=== PATIENT | male | born 1980 | race Hispanic/Latino ===

== ENCOUNTER 2017-09-03 06:09 | Day surgery (SDC) | payer OTHER ==
--- NOTE | 2017-09-03 06:20 | ED PDOC ---
Upper Extremity Pain/Injury Time Seen by Provider: 09/03/17 06:18 Chief Complaint (Provider): Right hand pain History Per: Patient History/Exam Limitations: no limitations Onset/Duration Of Symptoms: Days (4) Current Symptoms Are (Timing): Still Present Additional History Per: Patient Additional Complaint(s): 37yo male, presents to ED with complaints of pain to right hand s/p fracture 4 days ago. Patient states he was evaluated by his orthopedist originally and was placed in a splint; he presents to the ER due to continued worsening pain. He denies any new injuries, trauma, weakness, numbness or tingling. No other complaints. Past Medical History Reviewed: Historical Data, Nursing Documentation, Vital Signs - Medical History PMH: No Chronic Diseases - Surgical History Surgical History: No Surg Hx - Family History Family History: States: No Known Family Hx - Home Medications Home Medications: Ambulatory Orders Medication Instructions Recorded oxyCODONE/Acetaminophen [Percocet 1 tab PO Q6 PRN #20 tab 09/03/17 5/325 mg Tab] - Allergies Allergies/Adverse Reactions: Allergies Allergy/AdvReac Type Severity Reaction Status Date / Time No Known Allergies Allergy Verified 09/03/17 06:21 Review of Systems ROS Statement: Except As Marked, All Systems Reviewed And Found Negative Constitutional: Negative for: Chills Musculoskeletal: Positive for: Hand Pain (right) Neurological: Negative for: Numbness Physical Exam - Reviewed Nursing Documentation Reviewed: Yes Vital Signs Reviewed: Yes - Physical Exam Appears: Positive for: Non-toxic Head Exam: Positive for: ATRAUMATIC, NORMAL INSPECTION, NORMOCEPHALIC Skin: Positive for: Normal Color Eye Exam: Positive for: Normal appearance Neck: Positive for: Supple Cardiovascular/Chest: Positive for: Regular Rate, Rhythm Respiratory: Positive for: Normal Breath Sounds Extremity: Positive for: Normal ROM (FROM of all digits right hand), Capillary Refill (< 2 seconds), Other (right hand in splint) Neurologic/Psych: Positive for: Alert, Oriented. Negative for: Motor/Sensory Deficits - Laboratory Results Result Diagrams: 09/03/17 08:09 09/03/17 08:09 Medical Decision Making Medical Decision Making: Impression: Right hand pain s/p fracture Plan: -- Case discussed with Dr. Willett and patient to be admitted for OR repair. Labs, CXR and urinalysis ordered. [address] Martinez, who will be endorsing patient to Dr. Hilton, incoming hospitalist at 7AM. Scribe Attestation: Documented by Barb Rojas, acting as a scribe for Edgard Herbert MD Provider Attestation: All medical record entries made by the Scribe were at my direction and personally dictated by me. I have reviewed the chart and agree that the record accurately reflects my personal performance of the history, physical exam, medical decision making, and the department course for this patient. I have also personally directed, reviewed, and agree with the discharge instructions and disposition. Disposition - Clinical Impression Clinical Impression: Fracture of fifth metacarpal bone of right hand - Patient ED Disposition Is Patient to be Admitted: Yes - Disposition Disposition Time: 06:21 Condition: FAIR
[2017-09-03 06:21] VITALS: BMI 22.0
[2017-09-03] MEDS ORDERED: Dextrose 5%/0.45% NS 1,000 ML IV SCH (06:30)
[2017-09-03] MEDS ORDERED: Phenylephrine 10 mg/ml Inj ONE (07:17)
[2017-09-03] MEDS ORDERED: Succinylcholine 200 mg/10 ml Inj IV ONE (07:17)
[2017-09-03] MEDS ORDERED: Rocuronium 10 mg/ml (5 ml) ONE (07:17)
[2017-09-03] MEDS ORDERED: Lidocaine 4% (Laryng-O-Jet) Kit MM ONE (07:17)
[2017-09-03] MEDS ORDERED: Propofol 10 mg/ml Inj (20 ML) ONE (07:17)
--- NOTE | 2017-09-03 07:41 | CP.PCM.CON ---
History of Present Illness - History of Present Illness History of Present Illness: Orthopedic H&P Patient is a 37 y/o M with no PMH who presents with severe R hand pain. He states that he injured her hand 6 days ago after a mechanical fall onto his R hand and punching a wall with his R hand immediately following. He was diagnosed with a R hand 5th metacarpal fracture, treated with an unsuccessful reduction and short arm splint at [facility]. Over the last week, the pain had progressively worsened prompting his visit to the ER today. The pain is currently sharp and stabbing in quality and constant in frequency. The pain is worsened with movement and alleviated with rest. He denies radiation of pain, numbness or tingling. He also denies CP/SOB/N/V/D/fever/ dysuria/melena. Dr. Willett was consulted for orthopedic evaluation. Review of Systems - Review of Systems All systems: reviewed and no additional remarkable complaints except Review of Systems: as per HPI Past Patient History - Past Medical History & Family History Past Medical History?: No Past Family History: Reviewed and not pertinent - Past Social History Smoking Status: Former Smoker Alcohol: Occasional Drugs: Denies - CARDIAC Hx Cardiac Disorders: No - PULMONARY Hx Respiratory Disorders: No - NEUROLOGICAL Hx Neurological Disorder: No - HEENT Hx HEENT Problems: No - RENAL Hx Chronic Kidney Disease: No - ENDOCRINE/METABOLIC Hx Endocrine Disorders: No - HEMATOLOGICAL/ONCOLOGICAL Hx Blood Disorders: No - INTEGUMENTARY Hx Dermatological Problems: No - MUSCULOSKELETAL/RHEUMATOLOGICAL Hx Musculoskeletal Disorders: No - GASTROINTESTINAL Hx Gastrointestinal Disorders: No - GENITOURINARY/GYNECOLOGICAL Hx Genitourinary Disorders: No - PSYCHIATRIC Hx Psychophysiologic Disorder: No Hx Substance Use: No - SURGICAL HISTORY Hx Surgeries: No - ANESTHESIA Hx Anesthesia: No Hx Anesthesia Reactions: No Meds Home Medications: Home Medication List Medication Instructions Recorded Confirmed Type oxyCODONE/Acetaminophen [Percocet 1 tab PO Q6 PRN #20 tab 09/03/17 Rx 5/325 mg Tab] Allergies/Adverse Reactions: Allergies Allergy/AdvReac Type Severity Reaction Status Date / Time No Known Allergies Allergy Verified 09/03/17 06:21 - Medications Medications: Current Medications Dextrose/Sodium Chloride (Dextrose 5%/0.45% Ns 1000 Ml) 1,000 mls @ 125 mls/hr IV .Q8H ROSALVA Last Admin: 09/03/17 07:17 Dose: 125 mls/hr Physical Exam - Constitutional Appears: Well, No Acute Distress - Head Exam Head Exam: ATRAUMATIC, NORMOCEPHALIC - Eye Exam Eye Exam: EOMI, Normal appearance, PERRL - ENT Exam ENT Exam: Mucous Membranes Moist, Normal Exam - Respiratory Exam Respiratory Exam: Clear to Auscultation Bilateral, NORMAL BREATHING PATTERN - Cardiovascular Exam Cardiovascular Exam: REGULAR RHYTHM - GI/Abdominal Exam GI & Abdominal Exam: Normal Bowel Sounds, Soft - Extremities Exam Additional comments: R hand: splint CDI no lesions moving all fingers sensation intact MN/UN/RN 2 sec cap refill - Neurological Exam Neurological exam: Alert, Oriented x3 - Psychiatric Exam Psychiatric exam: Normal Affect, Normal Mood - Skin Skin Exam: Normal Color, Warm Results - Vital Signs Recent Vital Signs: Last Vital Signs Temp 98.3 F 09/03/17 07:32 Pulse 78 09/03/17 07:32 Resp 16 09/03/17 07:32 BP 157/91 H 09/03/17 07:32 Pulse Ox 99 09/03/17 07:32 - Labs Result Diagrams: 09/03/17 08:09 09/03/17 08:09 Assessment & Plan (1) Fracture of fifth metacarpal bone of right hand Assessment and Plan: -Dr. Willett proposes a R hand 5th metacarpal fx ORIF in OR today -Risks/benefits of procedures were explained the the patient in detail and she expresses understanding. He agrees to proceed with above procedure. -above d/w Dr. Willett in agreement. Status: Acute - Date & Time Date: 09/03/17 Time: 07:15
[2017-09-03 07:48] LABS: URINE BILIRUBIN NEGATIVE (NEGATIVE); URINE BLOOD NEGATIVE (NEGATIVE); URINE CLARITY CLEAR (Clear); URINE COLOR STRAW (YELLOW); URINE GLUCOSE (UA) NEG (Normal); URINE LEUKOCYTE ESTERASE NEG Leu/uL (Negative); URINE PROTEIN NEGATIVE (NEGATIVE); URINE UROBILINOGEN 0.2-1.0 mg/dL (0.2-1.0)
[2017-09-03] MEDS ORDERED: Lactated Ringer's 1,000 ML IV ONE ×2 (07:50→09:35)
[2017-09-03] MEDS ORDERED: Midazolam 2 MG/2 ML VIAL ONE (07:58)
[2017-09-03] MEDS ORDERED: ceFAZolin IV 2 gm in Dextrose 2 GM/50 ML BAG IVPB ONE (08:02)
[2017-09-03] MEDS ORDERED: Bacitracin Ointment 30 GM TUBE ONE (08:07)
[2017-09-03] MEDS ORDERED: Gentamicin 80 mg/2mL Inj. ONE (08:07)
[2017-09-03] MEDS ORDERED: Gentamicin 80 mg/2mL Inj. IVPB ONE (08:15)
[2017-09-03 08:19] LABS: BASO # 0.1 K/uL (0.0-0.2); BASO % 0.9 % (0.0-2.0); EOS # 0.1 K/uL (0.0-0.7); EOS % 1.4 % (0.0-4.0); LYMPH % 21.6 % (20.0-40.0); MEAN CELL VOLUME 88.3 fl (80.0-94.0); MEAN CORPUSCULAR HEMOGLOBIN 30.2 pg (27.0-31.0); MEAN CORPUSCULAR HGB CONC 34.2 g/dL (33.0-37.0); MEAN PLATELET VOLUME 8.5 fl (7.2-11.7); MONO # 0.5 K/uL (0.0-0.8); MONO % 5.6 % (0.0-10.0); NEUT # 6.4 K/uL (1.8-7.0); NEUT % 70.5 % (50.0-75.0); NRBC % 0.1 % (0.0-0.0); RBC 5.29 Mil/uL (4.40-5.90); RED CELL DISTRIBUTION WIDTH 12.6 % (11.5-14.5); WHITE BLOOD COUNT 9.1 K/uL (4.8-10.8)
[2017-09-03 08:20] LABS: PROTHROMBIN TIME 11.2 Seconds (9.8-13.1)
[2017-09-03 08:21] LABS: PARTIAL THROMBOPLASTIN TIME 30.8 Seconds (25.6-37.1)
[2017-09-03] MEDS ORDERED: Neostigmine 1:1000 (1 mg/ml) Inj ONE (08:21)
--- NOTE | 2017-09-03 08:22 | RAD ---
HISTORY: chest pain COMPARISON: No prior. FINDINGS: LUNGS: No active pulmonary disease. PLEURA: No significant pleural effusion identified, no pneumothorax apparent. CARDIOVASCULAR: Normal. OSSEOUS STRUCTURES: No significant abnormalities. VISUALIZED UPPER ABDOMEN: Normal. OTHER FINDINGS: None. IMPRESSION: No acute cardiopulmonary disease appreciated.
[2017-09-03 08:25] LABS: ALB/GLOB RATIO 1.4 (1.0-2.1); ALBUMIN 4.5 g/dL (3.5-5.0); ALT/SGPT 29 U/L (21-72); AST/SGOT 24 U/L (17-59); BLOOD UREA NITROGEN 14 mg/dl (9-20); CALCIUM 9.3 mg/dL (8.4-10.2); GFR AFRICAN-AMERICAN > 60; GFR NON-AFRICAN AMERICAN > 60
[2017-09-03] MEDS ORDERED: Bacitracin OINT 15GM TOP ONE (09:55)
[2017-09-03] MEDS ORDERED: HYDROmorphone 0.5 mg/0.5 ml ISec IVP PRN (10:11)
--- NOTE | 2017-09-03 10:13 | PCM.ANESB4 ---
Infraclavicular Block - Femoral Nerve Block Date of Procedure: 09/03/17 Anesthesiologist: Dalton Pre-Procedure Diagnosis: Right 5th metacarpal fracture Post-Procedure Diagnosis: Same Procedure Performed: Brachial Plexus at the Infraclavicular area Right - Procedure Infraclavicular Block: The procedure was explained to the patient that it is for the post-operative pain management. Consent was obtained after a thorough discussion with the patient regarding the benefits and possible complications of local anesthetic block of the brachial plexus at the infraclavicular area. The patient was brought to the operating room and standard monitors were applied. Time-out was held with the circulating nurse to confirm the correct surgery and the appropriate block. After applying oxygen by nasal cannula and administering IV Sedation, patient's head was gently rotated away from the operative ___right____ _ shoulder and the area medial to the coracoid process and inferior to the clavicle was carefully palpated. The ultrasound transducer was then applied to the skin in the transverse plane and the brachial plexus was visualized surrounding the axillary artery and deep to the pectoralis major and minor muscles. After thorough identification, this area was prepped withChloraprep times and 1 % Lidocaine was injected subcutaneously for topical anesthesia. At this point, a #21 gauge Stimuplex 4-inch needle was inserted cephalad to the ultrasound transducer and inferior to the clavicle in-plane towards the posterior aspect of the axillary artery. Needle advancement was performed carefully under ultrasound visualization. Nerve stimulator was used and twitch of the affected extremity including fingers, hand, wrist and elbow was obtained at current of __0.4___MA. After repeated negative aspiration, __2___cc of _0.5__ __% ___bupivicaine with 1:200,000 epinephrine was injected and this was followed with __23____ cc of __0.5 % __bupivicaine with 1:200,000 epinephrine . Under ultrasound guidance the local anesthetics were observed surrounding the cords of the brachial plexus. The needle was removed intact and sterile dressing was applied. The patient had stable vital signs, was conscious and in no apparent distress. The patient tolerated the infraclavicular block of the brachial plexus well with stable vital signs was prepared for subsequent surgery.
[2017-09-03] MEDS ORDERED: Lactated Ringer's 1,000 ML IV SCH ×2 (10:15→11:00)
[2017-09-03] MEDS ORDERED: Oxycodone/Acetaminophen 5/325 mg Tab PO PRN (10:57)
--- NOTE | 2017-09-03 11:09 | PCM.SURG1 ---
Surgeon's Initial Post Op Note - Surgeon's Notes Surgeon: Brennon Glove Operator: KENNETH Amezquita Type of Anesthesia: General Endo Anesthesia Administered By: DR Das Pre-Operative Diagnosis: Displaced/angulated distal 5th metacarpal neck fracture with significant comminution and angulation/displacement Operative Findings: as above Post-Operative Diagnosis: as above Operation Performed: ORIF displaced/angulated dfistal 5th Metacarpal fx. primary repair extensor tendon. primary repair capsule 5th MCP joint. applx short arm splint Specimen/Specimens Removed: fx callous Estimated Blood Loss: EBL {In ML}: 5 Blood Products Given: N/A Drains Used: No Drains Post-Op Condition: Good Date of Surgery/Procedure: 09/03/17 Time of Surgery/Procedure: 08:50 (time in room/anaesthesia indcution time 7:55)
[2017-09-03 12:25] VITALS: RESP 18
--- NOTE | 2017-09-03 14:37 | RAD ---
PROCEDURE: Right Hand Radiographs. HISTORY: s/p ORIF right 5th metacarpal COMPARISON: None. FINDINGS: BONES: Healing fracture distal aspect right 5th metacarpal. Major fracture fragments anatomically aligned. No evidence of orthopedic hardware failure. JOINTS: Normal. No osteoarthritic changes. SOFT TISSUES: Normal. OTHER FINDINGS: None. IMPRESSION: Satisfactory postoperative status.
[2017-09-03 14:42] VITALS: BP 132/76; PULSE 97; TEMP 97.6; O2SAT 98
--- NOTE | 2017-09-03 16:07 | RAD ---
PROCEDURE: Abort Fluoroscopy up to 1 hr. HISTORY: COMPARISON: None TECHNIQUE: Standard protocol for this study/examination. FINDINGS: Total fluoroscopic time (continuous mode) utilized during the procedure (seconds) 4.4. Total exam DLP: (mGy) 0.06.. IMPRESSION: Less than 1 hr fluoroscopic time utilized during performance of the procedure.
--- NOTE | 2017-09-03 17:12 | CARD ---
APPROVED REPORT EKG Measurement Heart [id number] <Conclusion> Normal sinus rhythm Normal ECG
--- NOTE | 2017-09-05 09:21 | OP ---
PROCEDURE DATE: 09/03/2017 PREOPERATIVE DIAGNOSES: Displaced angulated distal fifth metacarpal neck fracture with significant comminution, angulation and displacement. POSTOPERATIVE DIAGNOSES: Displaced angulated distal fifth metacarpal neck fracture with significant comminution, angulation and displacement. OPERATIVE FINDINGS: Displaced angulated distal fifth metacarpal neck fracture with significant comminution, angulation and displacement. SURGEON: Bronson Willett MD BORING MACHINE SET UP OPERATOR JIG: Yanely Toribio, certified registered nursing engineer first assistant. OPERATIVE PROCEDURE: 1. Open reduction internal fixation of displaced angulated distal fifth metacarpal fracture, right hand. 2. Primary repair of extensor tendon. 3. Primary repair of capsule of the fifth metacarpophalangeal joint, a capsulotomy. 4. Application of volar splint. 5. Positioning of fluoroscope interpretation of video images. SPECIMEN REMOVED: Fracture callus. BLOOD LOSS: 5 mL. BLOOD PRODUCTS GIVEN: None. DRAINS: No drains. POSTOPERATIVE CONDITION: Stable. TIME OF SURGERY: Time in the room 7:55, and incision time 8:50. After having obtained informed consent from the patient and his , Rachel, after thoroughly discussing the pros, cons, risks and benefits of the surgical approach, the possibility of stiffness, infection, mechanical failure, thromboembolic disease, secondary or tertiary surgery was discussed. The right fifth metacarpal is the correct metacarpal. OPERATIVE INDICATIONS: Kallie Moraes is a 37-year-old gentleman who had sustained a fall and then had punched some paper as a result of frustration at work. The patient presents to [facility] with severe pain, numbness, and tingling. The patient had been seen elsewhere and presents at this point in time with severe discomfort, pain, and restricted range of motion. Possibility again of mechanical failure, infection, thromboembolic disease, secondary or tertiary surgery was discussed. OPERATIVE PROCEDURE: The right hand is the correct hand. After having obtained informed consent in the above fashion, after the satisfactory induction of general and regional anesthesia by Dr. Juan David Hoffman, after having identified side, site, and procedure and critical pause/time-out, the patient identified as Kallie Moraes in the supine position with all bony prominences well padded, the right upper extremity was prepped and free draped in the usual fashion for upper extremity surgery. The tourniquet had been applied, but it was not yet inflated. The operation was performed under 2.0 eyeglass magnification. An incision was described dorsal ulnarly to the fifth metacarpal extending past the metacarpophalangeal joint. Great care was taken to avoid injury to the dorsal sensory branch of the ulnar nerve. The skin incision was carried down through the skin and subcutaneous tissue. Hemostasis was controlled with the electrocautery. At this point in time, the fracture site is noted. It is unfortunately at the intersection of the extensor tendons, the extensor digitorum communis, and the extensor fifth finger. This having been accomplished, a portion of chiasm was incised and at this point in time, a capsulotomy was accomplished as well since the fracture was severely angulated and oblique with a very small distal fragment. Because of the small distal fragment, a 2.0 T-plate was chosen as the fixation of choice. There was found to be comminution at the fracture as well. This having been accomplished, the fracture was reduced with flexion of the MCP joint and upper force, the fracture was reduced. The periosteum was cleared. The fracture site was cleared of healing callus and the T-plate was placed on the dorsal ulnar aspect of the fifth metacarpal. A sequential drill hole was drilled, sounded and the appropriate size screws were placed. This having been accomplished, the fracture initially had initially been held with a 1.6-mm K-wire and 1.0-mm K-wire for the comminuted fragment. Again this having been accomplished, the plate was placed deep to the musculature and the extensor tendons. Each sequential drill hole was drilled, sounded appropriate size screws were placed. Verification of position was offered on AP and lateral image intensification views. The position was found to be acceptable. The capsule was repaired with the MCP joint approximately 30 degrees of extension using interrupted fiber wire. This having been accomplished, the extensor tendon was repaired using interrupted fiber wire as well the capsule. The extensor tendon repair having been accomplished, capsular repair having been accomplished, the periosteum was repaired with Vicryl. The skin incision was repaired with Vicryl and nylon. Pepito Smith compression dressing and volar splint was applied. Bronson Willett MD
== END 2017-09-03 14:50 | disposition home or self-care (01) ==
LOC: H.ER 06:09 → H.ERHOLD 06:22 → INTOOBSV 06:22 → UNDOADMOB 06:22 → H.ER 07:40 → H.SDS 11:18
PROVIDERS: ATTEND Internal Medicine
DX: S62.336A Displaced fracture of neck of fifth metacarpal bone, right hand, initial encounter for closed fracture (principal); W19.XXXA Unspecified fall, initial encounter; Z87.891 Personal history of nicotine dependence
CPT/HCPCS: 26615; 71045; 73130; 80053; 81003; 85025; 85610; 85730; 93005; 96360; 96361; 99284; J0330; J0690; J1580; J2001; J2250; J2370; J2405; J2704; J2710; J3010; J7042; J7120; C1713